=== PATIENT | female | born 1970 | race Two or more races ===

== ENCOUNTER 2021-09-22 11:23 | Emergency (ER) | payer OTHER ==
[~2021-09-22] VITALS: Ht 165.1 cm; Wt 81.6 kg
== END 2021-09-22 11:54 | disposition home or self-care (01) ==
LOC: ER 11:23
DX: M54.2 Cervicalgia (principal)

== ENCOUNTER 2025-01-04 11:31 | Emergency (ER) | payer OTHER ==
[~2025-01-04] VITALS: Ht 165.1 cm; Wt 72.6 kg
[2025-01-04] MEDS ORDERED: KETOROLAC TROMETHAMINE 60 MG VIAL IM ONE (12:45)
[2025-01-04] MEDS ORDERED: ORPHENADRINE CITRATE 30 MG/ML AMPUL IM ONE (12:45)
[2025-01-04] MEDS ORDERED: NORFLEX100MG PO (12:46)
[2025-01-04] MEDS ORDERED: DICLOFENAC SODI75 MG PO (12:46)
== END 2025-01-04 13:23 | disposition home or self-care (01) ==
LOC: ER 11:31
DX: M79.605 Pain in left leg (principal)